=== PATIENT | male | born 1990 | race Caucasian/White ===

== ENCOUNTER → 2016-08-07 | Outpatient (CLI) | payer BC, OTHER ==
[~2016-08-07] MED LIST: ACNE MED; AMX500 PO; CLR10 PO
== END | disposition home or self-care (01) ==
LOC: C.LABMFLN 08:15
PROVIDERS: ATTEND Family Medicine
DX: E29.1 Testicular hypofunction (principal)

== ENCOUNTER → 2018-02-24 | Outpatient (CLI) | payer BC, OTHER | END | disposition home or self-care (01) | LOC: C.LABSPEC 18:14 | PROVIDERS: ATTEND Family Medicine | DX: B08.02 Orf virus disease (principal) ==